=== PATIENT | male | born 1950 | race Caucasian/White ===

== ENCOUNTER 2024-11-22 14:36 | Observation (INO) | payer OTHER ==
[~2024-11-22] VITALS: Ht 182.9 cm; Wt 100.1 kg
[2024-11-22] MEDS ORDERED: ASPI81CH PO (14:50)
[2024-11-22] MEDS ORDERED: BETASEPT118 M1 PO (14:50)
[2024-11-22] MEDS ORDERED: ATOR20 PO (14:50)
[2024-11-22] MEDS ORDERED: Norco 5-325 Ta1 EACH PO (14:50)
[2024-11-22] MEDS ORDERED: VITAMIN D325 MC3 PO (14:51)
[2024-11-22] MEDS ORDERED: CYAN1000I IM (14:51)
[2024-11-22] MEDS ORDERED: DOXE10 PO (14:51)
[2024-11-22] MEDS ORDERED: METO25ER PO (14:52)
[2024-11-22] MEDS ORDERED: LISI20 PO (14:52)
[2024-11-22] MEDS ORDERED: NALOXONE H0.4 MG/1 M IM (14:52)
[2024-11-22] MEDS ORDERED: SILD25T PO (14:52)
[2024-11-22] MEDS ORDERED: MULVITA PO (14:52)
[2024-11-22] MEDS ORDERED: PANTOPRAZOLE SO PO (14:53)
[2024-11-22] MEDS ORDERED: TUBERSOL5 TUB UNIT ID (14:53)
[2024-11-22] MEDS ORDERED: Flomax0.4 MG PO (14:53)
[2024-11-22] MEDS ORDERED: DEPO-TESTO200 MG/11 IM (14:53)
[2024-11-22 15:07] LABS: BASOPHILS ABSOLUTE AUTO 0.04 K/mm3 (0.00-0.23); BASOPHILS PERCENT AUTO 0 % (0-2); EOSINOPHILS ABSOLUTE AUTO 0.16 K/mm3 (0.00-0.68); EOSINOPHILS PERCENT AUTO 2 % (0-6); Hematocrit 37.4 % (37.0-53.0); Hemoglobin 12.9 g/dL (13.5-17.5); IMMATURE GRAN ABSOLUTE AUTO 0.04 K/mm3 (0.00-0.10); IMMATURE GRAN PERCENT AUTO 0 % (0-1); LYMPHOCYTES ABSOLUTE AUTO 1.78 K/mm3 (0.84-5.20); LYMPHOCYTES PERCENT AUTO 20 % (21-46); MONOCYTES PERCENT AUTO 11 % (4-13); Mean Corpuscular HGB Conc 34.5 g/dL (31.5-36.5); Mean Corpuscular Volume 90 fL (80-100); Mean Platelet Volume 8.8 fL (9.1-12.4); NEUTROPHILS PERCENT AUTO 66 % (41-73); Platelet Count 221 K/mm3 (150-400); RDW Standard Deviation 39.2 fL (35.1-46.3); Red Blood Cell Count 4.16 M/mm3 (4.30-5.90); White Blood Cell Count 8.92 K/mm3 (4.00-11.30)
[2024-11-22 15:27] LABS: Albumin, Blood 3.3 g/dL (3.4-5.0); Albumin/Globulin Ratio 1.2 (0.8-1.8); Bilirubin, Total 0.5 mg/dL (0.1-1.0); Bun/Creatinine Ratio 16.4 (12.0-20.0); Calcium, Blood 8.7 mg/dL (8.5-10.1); Creatinine, Blood 1.4 mg/dL (0.60-1.20); Globulin, Blood 2.8 g/dL (2.2-4.0); Potassium, Blood 4.3 mmol/L (3.5-5.5); Total Protein, Blood 6.1 g/dL (6.4-8.2)
[2024-11-22] MEDS ORDERED: NS 1,000 ML IV SCH ×2 (16:20→18:15)
[2024-11-22] MEDS ORDERED: Aspirin 325 MG Tab PO ONE (16:55)
[2024-11-22] MEDS ORDERED: Clopidogrel Bisulfate 300 MG TABLET PO ONE (18:10)
[2024-11-22] MEDS ORDERED: HYDROcodone 5-APAP 325 TAB PO PRN (18:20)
[2024-11-22] MEDS ORDERED: Chlorhexidine Mouth Care 15 ML UDC MT SCH (20:00)
[2024-11-22 20:32] VITALS: BP 125/63
[2024-11-22] MEDS ORDERED: Atorvastatin 10 MG Tab PO SCH (21:00)
--- NOTE | 2024-11-22 21:00 | NUR ---
ADMIT NOTE HANDOFF RECEIVED FROM CALCULATION CLERKCHEY GRANT. PT ARRIVED TO FLOOR VIA GURNEY. PT ORIENTED TO UNIT. CALL BUTTON WITHIN REACH. PERSONAL POSSESSIONS WITH PT.
[2024-11-22 23:41] VITALS: BP 147/67
[2024-11-23 02:36] LABS: BASOPHILS ABSOLUTE AUTO 0.03 K/mm3 (0.00-0.23); BASOPHILS PERCENT AUTO 0 % (0-2); EOSINOPHILS ABSOLUTE AUTO 0.26 K/mm3 (0.00-0.68); EOSINOPHILS PERCENT AUTO 3 % (0-6); Hemoglobin 13.1 g/dL (13.5-17.5); IMMATURE GRAN ABSOLUTE AUTO 0.03 K/mm3 (0.00-0.10); IMMATURE GRAN PERCENT AUTO 0 % (0-1); LYMPHOCYTES PERCENT AUTO 29 % (21-46); MONOCYTES ABSOLUTE AUTO 1.01 K/mm3 (0.16-1.47); MONOCYTES PERCENT AUTO 13 % (4-13); Mean Corpuscular HGB 32.4 pg (26.0-34.0); Mean Corpuscular HGB Conc 35.4 g/dL (31.5-36.5); Mean Corpuscular Volume 92 fL (80-100); Mean Platelet Volume 8.8 fL (9.1-12.4); NEUTROPHILS ABSOLUTE AUTO 4.38 K/mm3 (1.96-9.15); NEUTROPHILS PERCENT AUTO 55 % (41-73); Platelet Count 193 K/mm3 (150-400); RDW Standard Deviation 40.5 fL (35.1-46.3); Red Blood Cell Count 4.04 M/mm3 (4.30-5.90); White Blood Cell Count 8.01 K/mm3 (4.00-11.30)
[2024-11-23 02:47] LABS: Albumin, Blood 3.1 g/dL (3.4-5.0); Albumin/Globulin Ratio 1.1 (0.8-1.8); Bilirubin, Total 0.5 mg/dL (0.1-1.0); Bun/Creatinine Ratio 19.4 (12.0-20.0); Calcium, Blood 8.4 mg/dL (8.5-10.1); Creatinine, Blood 0.98 mg/dL (0.60-1.20); Globulin, Blood 2.9 g/dL (2.2-4.0); Potassium, Blood 4.1 mmol/L (3.5-5.5)
--- NOTE | 2024-11-23 03:31 | NUR ---
SHIFT SUMMARY ADMITTED FOR NSTEMI/DEHYDRATION. FULL CODE. TELEMETRY: NSR @ 74 BPM. TRENDING TROPONINS, PEAKED AND DOWNTRENDING. HE IS A [facility] PATIENT. TELEMETRY: NSR @ 74 BPM. CARDIAC DIET. HE AND HIS LIVE IN [place]. HE DENIES DIZZYNESS OR PAIN. HE IS A&O X4.
[2024-11-23 04:50] VITALS: BP 114/69
[2024-11-23] MEDS ORDERED: Pantoprazole Sodium 20 MG Tab PO SCH (06:00)
[2024-11-23 07:27] VITALS: BP 126/75
[2024-11-23] MEDS ORDERED: Metoprolol Tartrate 25 MG Tab PO SCH (09:00)
[2024-11-23] MEDS ORDERED: Enoxaparin 40 MG/0.4 ML SYR SC SCH (09:00)
[2024-11-23] MEDS ORDERED: Aspirin 81 MG Chew PO SCH (09:00)
[2024-11-23] MEDS ORDERED: Tamsulosin HCl 0.4 MG Cap PO SCH ×2 (09:00)
[2024-11-23 09:10] LABS: CHOL/HDL RATIO 2.7; Cholesterol 131 mg/dL (50-200); HDL Cholesterol 48 mg/dL (>39); Low Density Lipoprotein Chol 48 mg/dL (0-110); Triglycerides 176 mg/dL (30-160); Very Low Density Lipoprot Chol 35 mg/dL (6-32)
[2024-11-23 11:56] VITALS: BP 125/70
[2024-11-23] MEDS ORDERED: CLOP75 PO (12:14)
[2024-11-23 13:41] VITALS: BP 116/75
--- NOTE | 2024-11-23 13:57 | NUR ---
DISCHARGE PT DISCHARGED HOME WITH . ALL BELONGINS WITH PT, EDUCATION PROVIDED, ALL QUESTIONS ANSWERED.
== END 2024-11-23 13:53 | disposition home or self-care (01) ==
LOC: ER 14:36 → MEDS 14:37 → ENPENDDIS 11-23 11:15 → MEDS 11-23 13:53
PROVIDERS: Emergency Medicine; Hospitalist; ADMIT Family Medicine
DX: I21.4 Non-ST elevation (NSTEMI) myocardial infarction (principal); T67.01XA Heatstroke and sunstroke, initial encounter; X30.XXXA Exposure to excessive natural heat, initial encounter; I10 Essential (primary) hypertension; E78.5 Hyperlipidemia, unspecified; N17.9 Acute kidney failure, unspecified; K21.9 Gastro-esophageal reflux disease without esophagitis; N40.0 Benign prostatic hyperplasia without lower urinary tract symptoms; G89.29 Other chronic pain; I25.10 Atherosclerotic heart disease of native coronary artery without angina pectoris; Z95.5 Presence of coronary angioplasty implant and graft; Z79.82 Long term (current) use of aspirin; Z79.899 Other long term (current) drug therapy
CPT/HCPCS: 36415; 70450; 80053; 80061; 83880; 84484; 85025; 93005; 93010; 93306; 96360; 96372; 99285-25; A9270; G0378; J1650; J2470; J7030